=== PATIENT | female | born 1935 | race Caucasian/White ===

== ENCOUNTER 2017-07-27 18:13 | Inpatient (IN) | payer OTHER ==
[~2017-07-27] VITALS: Ht 139.7 cm; Wt 67.5 kg
[~2017-07-27 18:13] MED LIST: CEFTIN250 MG PO; LEVAQUIN500 MG PO; LISINOPRIL20 MG PO; VITAMIN D31000 UNI2 PO
[2017-07-27 19:20] LABS: APPEARANCE CLOUDY ((CLEAR)); BILIRUBIN NEGATIVE; BLOOD SMALL; COLOR AMBER ((YELLOW)); GLUCOSE (STRIP) NEGATIVE; KETONES NEGATIVE; LEUKOCYTES MODERATE; NITRITE NEGATIVE; PROTEIN (STRIP) 30; SPECIFIC GRAVITY 1.012 (1.000-1.030)
[2017-07-27 19:29] LABS: HEMATOCRIT 41.2 % (36.0-46.0); HEMOGLOBIN 13.3 G/DL (11.9-15.5); MCH 33.4 PG (29.0-34.0); MCHC 32.3 G/DL (30.0-36.0); MCV 103.5 FL (83-99); PLATELET COUNT 185 K/uL (156-360); RBC DIS.WIDTH-CV 13.3 % (11.8-14.6); RBC DIS.WIDTH-SD 51.5 % (39-53); RED BLOOD COUNT 3.98 M/uL (3.80-5.20); WHITE BLOOD COUNT 5.4 K/uL (4.1-10.2)
[2017-07-27 19:36] LABS: BICARBONATE 25.2 mEq/L (22-26); CARBOXY HGB 1.9 % (0-5); COMMENTS - BLOOD GASES A+C+; DEVICE NC; METHEMOGLOBIN 1.1 % (0-1.5); O2 FLOW 3 L/MIN; PCO2 38 mm Hg (35-45); PO2 86 mm Hg (80-100); SITE LR; pH 7.43 (7.35-7.45)
[2017-07-27 19:37] LABS: TOTAL RESP RATE 46 resp/min
[2017-07-27 20:07] LABS: TROP-I INTERPRETATION INDETERMINATE; TROPONIN-I 0.57 ng/mL (0.0-0.30)
[2017-07-27 20:15] LABS: ALBUMIN 3.2 G/DL (3.2-4.8); CHLORIDE 107 MEQ/L (99-109); POTASSIUM 4.1 MEQ/L (3.7-5.4); SODIUM 147 MEQ/L (136-147); TOTAL BILIRUBIN 1.1 MG/DL (0.0-1.0)
[2017-07-27 20:20] LABS: ALKALINE PHOSPHATASE 122 IU/L (3-129); ALT (GPT) 81 IU/L (3-49); AST (GOT) 154 IU/L (2-34); CREATININE 0.8 MG/DL (0.6-1.3); GFR ESTIMATE (CALCULATED) > 59 mL/min/; GLUCOSE 100 mg/dL (70-99); TOTAL PROTEIN 5.6 G/DL (6.4-8.3); UREA NITROGEN (BUN) 25 mg/dL (9-23)
[2017-07-27 20:27] LABS: ABS NEUTROPHIL COUNT 5.2; ANISOCYTOSIS 1+; ATYPICAL LYMPHOCYTE 1.7 %; BAND NEUTROPHILS 39.1 % (0-8.0); EOSINOPHIL ABS CT 0; LYMPHOCYTES 0.9 % (15.0-45.0); METAMYELOCYTES 0.9 %; MICROCYTOSIS 1+; NUCLEATED RBC'S 0.9; PLAT.SUFFICIENCY ADEQUATE; POIKILOCYTOSIS 1+; SEG.NEUTROPHILS 57.4 % (46.0-76.0)
[2017-07-27 20:35] LABS: RED BLOOD CELLS 0-5 /HPF (0-5)
[2017-07-27] MEDS ORDERED: CRANBERRY 4001 EAC1 PO (20:35)
[2017-07-27 20:43] LABS: WHITE BLOOD CELLS 15-20 /HPF (0-5)
[2017-07-27 20:44] LABS: EPITHELIAL CELLS 1+ /HPF
[2017-07-27 20:45] LABS: AMORPHOUS URATES CRYSTALS 3+; MUCUS TRACE /LPF; UCUL ADDED? YES
[2017-07-28 01:05] VITALS: BP 95/56
[2017-07-28 02:13] LABS: TROP-I INTERPRETATION POSITIVE
[2017-07-28 02:20] LABS: TROPONIN-I 0.85 ng/mL (0.0-0.30)
[2017-07-28 04:52] VITALS: BP 92/54
[2017-07-28 06:29] LABS: ALT (GPT) 78 IU/L (3-49); AST (GOT) 118 IU/L (2-34); CHLORIDE 108 MEQ/L (99-109); GFR ESTIMATE (CALCULATED) 56 mL/min/; GLUCOSE 95 mg/dL (70-99); POTASSIUM 4.6 MEQ/L (3.7-5.4); SODIUM 144 MEQ/L (136-147); TOTAL BILIRUBIN 1.1 MG/DL (0.0-1.0); TOTAL PROTEIN 5.3 G/DL (6.4-8.3); UREA NITROGEN (BUN) 25 mg/dL (9-23)
[2017-07-28 06:35] LABS: ALKALINE PHOSPHATASE 87 IU/L (3-129)
[2017-07-28 06:41] LABS: ABS NEUTROPHIL COUNT 27.4; ANISOCYTOSIS 2+; BAND NEUTROPHILS 20.9 % (0-8.0); EOSINOPHIL ABS CT 0; HEMATOCRIT 41.6 % (36.0-46.0); LYMPHOCYTES 0.9 % (15.0-45.0); MACROCYTES 1+; MCH 32.7 PG (29.0-34.0); MCHC 31.3 G/DL (30.0-36.0); MCV 104.8 FL (83-99); METAMYELOCYTES 5.2 %; MICROCYTOSIS 1+; MYELOCYTES 3.5 %; PLAT.SUFFICIENCY DECREASED; RBC DIS.WIDTH-CV 13.8 % (11.8-14.6); RED BLOOD COUNT 3.97 M/uL (3.80-5.20); SEG.NEUTROPHILS 66.5 % (46.0-76.0)
[2017-07-28 06:43] LABS: PLATELET COUNT 129 K/uL (156-360); WHITE BLOOD COUNT 31.4 K/uL (4.1-10.2)
[2017-07-28 08:50] VITALS: BP 118/81
[2017-07-28 09:44] LABS: TROP-I INTERPRETATION POSITIVE; TROPONIN-I 0.86 ng/mL (0.0-0.30)
[2017-07-28 11:30] VITALS: BP 115/57
[2017-07-28 12:09] LABS: THYROTROPIN (TSH) 1.2 MIU/L (0.4-5.5)
[2017-07-28 12:19] LABS: INTER. NORMALIZED RATIO ND
[2017-07-28 12:23] LABS: PTT ND SEC (25-37)
[2017-07-28 14:45] VITALS: BP 131/62
[2017-07-28 19:19] VITALS: BP 101/74
[2017-07-29] VITALS (9 sets, daily range): BP systolic 92–119; BP diastolic 50–78
[2017-07-29 00:57] LABS: INTER. NORMALIZED RATIO 1.6
[2017-07-29 06:32] LABS: HEMATOCRIT 40.4 % (36.0-46.0); MCH 34.2 PG (29.0-34.0); MCHC 32.2 G/DL (30.0-36.0); MCV 106.3 FL (83-99); RBC DIS.WIDTH-CV 14.4 % (11.8-14.6); RBC DIS.WIDTH-SD 56.7 % (39-53); WHITE BLOOD COUNT 24.3 K/uL (4.1-10.2)
[2017-07-29 07:06] LABS: ABS NEUTROPHIL COUNT 22.1; ANISOCYTOSIS 1+; ATYPICAL LYMPHOCYTE 0.4 %; EOSINOPHIL ABS CT 0; LYMPHOCYTES 0.5 % (15.0-45.0); MACROCYTES 1+; METAMYELOCYTES 2.2 %; MONOCYTES 6.1 % (0-9.0); PLAT.SUFFICIENCY DECREASED; PLATELET COUNT 86 K/uL (156-360); SEG.NEUTROPHILS 66.8 % (46.0-76.0); TOX.VACUOLIZATION 1+
[2017-07-29 07:55] LABS: CHLORIDE 114 MEQ/L (99-109); CREATININE 1.2 MG/DL (0.6-1.3); GFR ESTIMATE (CALCULATED) 45 mL/min/; POTASSIUM 4.5 MEQ/L (3.7-5.4); SODIUM 147 MEQ/L (136-147)
[2017-07-29 07:56] LABS: GLUCOSE 55 mg/dL (70-99); UREA NITROGEN (BUN) 38 mg/dL (9-23)
[2017-07-29 09:04] LABS: IMM.RETIC FRACTION 8.1 % (3-19); RETIC HGB EQUIVALENT 35.6 (28-36); RETICULOCYTE COUNT 1.2 % (0.5-1.8)
[2017-07-29 09:30] LABS: FOLIC ACID (FOLATE) 15.3 NG/ML (5.0-22.0)
[2017-07-29 12:12] LABS: FERRITIN 574 NG/ML (10-291); IRON 14 MCG/DL (35-150); TRANSFERRIN (TIBC) 153.3 mg/dL (215-380); TRANSFERRIN SATUR. 9 % (20-55)
[2017-07-29 12:22] LABS: TROP-I INTERPRETATION POSITIVE
[2017-07-29 19:44] LABS: HEMATOCRIT 36.9 % (36.0-46.0); HEMOGLOBIN 11.6 G/DL (11.9-15.5); MCH 33.3 PG (29.0-34.0); MCHC 31.4 G/DL (30.0-36.0); PLATELET COUNT 66 K/uL (156-360); RBC DIS.WIDTH-CV 14.5 % (11.8-14.6); RBC DIS.WIDTH-SD 57.1 % (39-53); RED BLOOD COUNT 3.48 M/uL (3.80-5.20); WHITE BLOOD COUNT 19.4 K/uL (4.1-10.2)
[2017-07-29 19:54] LABS: ALBUMIN 2.7 G/DL (3.2-4.8); CHLORIDE 113 MEQ/L (99-109); MAGNESIUM 1.5 mg/dl (1.3-2.7); POTASSIUM 4.2 MEQ/L (3.7-5.4); SODIUM 145 MEQ/L (136-147); TOTAL BILIRUBIN 1.3 MG/DL (0.0-1.0)
[2017-07-29 20:01] LABS: BASE EXCESS -5.3 mEq/L (-3 to +3); BICARBONATE 20.6 mEq/L (22-26); CARBOXY HGB 1.5 % (0-5); METHEMOGLOBIN 1.9 % (0-1.5); PCO2 41 mm Hg (35-45)
[2017-07-29 20:01] LABS: ALKALINE PHOSPHATASE 95 IU/L (3-129); ALT (GPT) 58 IU/L (3-49); AST (GOT) 68 IU/L (2-34); CREATININE 1.3 MG/DL (0.6-1.3); GFR ESTIMATE (CALCULATED) 41 mL/min/; PHOSPHORUS 4.2 mg/dL (2.5-4.9); TOTAL PROTEIN 4.9 G/DL (6.4-8.3); UREA NITROGEN (BUN) 43 mg/dL (9-23)
[2017-07-29 20:02] LABS: COMMENTS - BLOOD GASES C+; DEVICE VENT; FI02 100 %; INSPIRATORY/EXPIRATORY RATIO 335 RATIO; MECHANICAL RATE 18 resp/min; MODE AC; PEEP 5 CM/H20; PO2 269 mm Hg (80-100); SITE RR; TOTAL RESP RATE 18 resp/min; pH 7.31 (7.35-7.45)
[2017-07-29 20:05] LABS: GLUCOSE 132 mg/dL (70-99)
[2017-07-29 20:16] LABS: ABS NEUTROPHIL COUNT 17.6; ANISOCYTOSIS 1+; BAND NEUTROPHILS 26.1 % (0-8.0); EOSINOPHIL ABS CT 0; LYMPHOCYTES 1.7 % (15.0-45.0); MACROCYTES 1+; METAMYELOCYTES 5.2 %; MONOCYTES 0.9 % (0-9.0); MYELOCYTES 1.7 %; SEG.NEUTROPHILS 64.4 % (46.0-76.0)
[2017-07-29 21:17] LABS: APPEARANCE CLOUDY ((CLEAR)); BILIRUBIN NEGATIVE; BLOOD LARGE; COLOR AMBER ((YELLOW)); GLUCOSE (STRIP) NEGATIVE; KETONES NEGATIVE; LEUKOCYTES LARGE; NITRITE NEGATIVE; PROTEIN (STRIP) 30; SPECIFIC GRAVITY 1.013 (1.000-1.030)
[2017-07-29 21:31] LABS: RED BLOOD CELLS TNTC /HPF (0-5); WHITE BLOOD CELLS TNTC /HPF (0-5)
[2017-07-29 21:32] LABS: BACTERIA 3+ /HPF; EPITHELIAL CELLS RARE /HPF; MUCUS RARE /LPF; UCUL ADDED? YES
[2017-07-30] VITALS (23 sets, daily range): BP systolic 88–128; BP diastolic 39–75
[2017-07-30 03:19] LABS: HEMATOCRIT 33.5 % (36.0-46.0); HEMOGLOBIN 10.9 G/DL (11.9-15.5); MCH 33.7 PG (29.0-34.0); MCHC 32.5 G/DL (30.0-36.0); MCV 103.7 FL (83-99); RBC DIS.WIDTH-CV 14.5 % (11.8-14.6); RBC DIS.WIDTH-SD 55.8 % (39-53); RED BLOOD COUNT 3.23 M/uL (3.80-5.20); WHITE BLOOD COUNT 14.2 K/uL (4.1-10.2)
[2017-07-30 03:25] LABS: ALBUMIN 2.3 g/dL (3.2-4.8)
[2017-07-30 03:26] LABS: CHLORIDE 116 mEq/L (99-109); POTASSIUM 3.4 mEq/L (3.7-5.4); SODIUM 145 mEq/L (136-147)
[2017-07-30 03:28] LABS: TOTAL PROTEIN 4.2 g/dL (6.4-8.3)
[2017-07-30 03:30] LABS: TOTAL BILIRUBIN 1.3 mg/dL (0.0-1.0)
[2017-07-30 03:31] LABS: ALKALINE PHOSPHATASE 93 IU/L (3-129)
[2017-07-30 03:32] LABS: GFR ESTIMATE (CALCULATED) 56 mL/min/
[2017-07-30 03:33] LABS: AST (GOT) 57 IU/L (2-34); UREA NITROGEN (BUN) 42 mg/dL (9-23)
[2017-07-30 03:34] LABS: GLUCOSE 85 mg/dL (70-99)
[2017-07-30 03:35] LABS: ALT (GPT) 55 IU/L (3-49)
[2017-07-30 04:02] LABS: ANISOCYTOSIS 1+; BURR CELLS 2+; EOSINOPHIL ABS CT 0; HELMET CELLS 1+; HEMATOLOGY COMMENT 1 SN; LYMPHOCYTES 1.8 % (15.0-45.0); MACROCYTES 2+; METAMYELOCYTES 3.6 %; OVALOCYTES 1+; PLAT.SUFFICIENCY DECREASED; POIKILOCYTOSIS 2+
[2017-07-30 04:04] LABS: BAND NEUTROPHILS 4.6 % (0-8.0); PLATELET COUNT UNABLE TO REPORT K/uL (156-360)
[2017-07-31] VITALS (24 sets, daily range): BP systolic 96–131; BP diastolic 35–82
[2017-07-31 05:53] LABS: HEMATOCRIT 31.7 % (36.0-46.0); HEMOGLOBIN 10.5 G/DL (11.9-15.5); MCH 33.5 PG (29.0-34.0); MCHC 33.1 G/DL (30.0-36.0); MCV 101.3 FL (83-99); RBC DIS.WIDTH-CV 14.6 % (11.8-14.6); RBC DIS.WIDTH-SD 54.4 % (39-53); RED BLOOD COUNT 3.13 M/uL (3.80-5.20)
[2017-07-31 06:19] LABS: IMM.PLATELET FRACTION 7.3 (1-7); PLAT.SUFFICIENCY DECREASED
[2017-07-31 06:21] LABS: PLATELET COUNT 40 K/uL (156-360)
[2017-07-31 08:09] LABS: ALBUMIN 2.1 G/DL (3.2-4.8); ALT (GPT) 35 IU/L (3-49); CHLORIDE 120 MEQ/L (99-109); GLUCOSE 58 mg/dL (70-99); MAGNESIUM 1.3 mg/dl (1.3-2.7); SODIUM 148 MEQ/L (136-147); TOTAL BILIRUBIN 1.1 MG/DL (0.0-1.0); UREA NITROGEN (BUN) 35 mg/dL (9-23)
[2017-07-31 08:14] LABS: ALKALINE PHOSPHATASE 124 IU/L (3-129); AST (GOT) 33 IU/L (2-34); CREATININE 0.5 MG/DL (0.6-1.3); GFR ESTIMATE (CALCULATED) > 59 mL/min/; PHOSPHORUS 1.7 mg/dL (2.5-4.9); TOTAL PROTEIN 4.1 G/DL (6.4-8.3)
[2017-07-31 11:49] LABS: TRIGLYCERIDES 77 MG/DL (Normal: <150)
[2017-07-31 11:50] LABS: TROP-I INTERPRETATION NEGATIVE; TROPONIN-I 0.17 ng/mL (0.0-0.30)
[2017-07-31 12:20] LABS: BASE EXCESS -7.9 mEq/L (-3 to +3); CARBOXY HGB 1.9 % (0-5); COMMENTS - BLOOD GASES A+C+; CONTINUOUS POS AIRWAY PRESSURE 5 cm H2O; DEVICE 840; FI02 40 %; METHEMOGLOBIN 1.6 % (0-1.5); MODE SPONT; PCO2 27 mm Hg (35-45); PO2 67 mm Hg (80-100); PRES. SUPPORT 12 CM/H2O; SITE RR; TOTAL RESP RATE 31 resp/min; pH 7.38 (7.35-7.45)
[2017-07-31 17:55] LABS: TROP-I INTERPRETATION NEGATIVE; TROPONIN-I 0.16 ng/mL (0.0-0.30)
[2017-08-01] VITALS (19 sets, daily range): BP systolic 80–114; BP diastolic 40–64
[2017-08-01 05:07] LABS: CHLORIDE 120 mEq/L (99-109); POTASSIUM 3.5 mEq/L (3.7-5.4); SODIUM 147 mEq/L (136-147)
[2017-08-01 05:08] LABS: MAGNESIUM 1.8 mg/dL (1.3-2.7)
[2017-08-01 05:11] LABS: GLUCOSE 118 mg/dL (70-99)
[2017-08-01 05:12] LABS: PHOSPHORUS 2.5 mg/dL (2.5-4.9)
[2017-08-01 05:13] LABS: CREATININE 0.6 mg/dL (0.6-1.3); GFR ESTIMATE (CALCULATED) > 59 mL/min/
[2017-08-01 05:14] LABS: UREA NITROGEN (BUN) 28 mg/dL (9-23)
[2017-08-01 05:30] LABS: BASE EXCESS -5.3 mEq/L (-3 to +3); BICARBONATE 18.2 mEq/L (22-26); METHEMOGLOBIN 1.7 % (0-1.5); PCO2 28 mm Hg (35-45); PO2 67 mm Hg (80-100); pH 7.42 (7.35-7.45)
[2017-08-01 05:31] LABS: COMMENTS - BLOOD GASES C+; DEVICE VENT; FI02 30 %; MECHANICAL RATE 22 resp/min; MODE AC; PEEP 5 CM/H20; SITE RR; TIDAL VOLUME 335 ML; TOTAL RESP RATE 27 resp/min
[2017-08-01 06:07] LABS: TRIGLYCERIDES 69 MG/DL (Normal: <150)
[2017-08-02] VITALS (19 sets, daily range): BP systolic 91–116; BP diastolic 34–60
[2017-08-02 05:16] LABS: HEMATOCRIT 27.4 % (36.0-46.0); HEMOGLOBIN 9.2 G/DL (11.9-15.5); MCH 32.9 PG (29.0-34.0); MCHC 33.6 G/DL (30.0-36.0); MCV 97.9 FL (83-99); RBC DIS.WIDTH-CV 14.5 % (11.8-14.6); WHITE BLOOD COUNT 20.8 K/uL (4.1-10.2)
[2017-08-02 05:43] LABS: IMM.PLATELET FRACTION 6.7 (1-7); PLATELET COUNT 40 K/uL (156-360)
[2017-08-02 05:49] LABS: CHLORIDE 116 MEQ/L (99-109); CREATININE 0.4 MG/DL (0.6-1.3); GFR ESTIMATE (CALCULATED) > 59 mL/min/; GLUCOSE 123 mg/dL (70-99); PHOSPHORUS 1.9 mg/dL (2.5-4.9); POTASSIUM 3.1 MEQ/L (3.7-5.4); SODIUM 145 MEQ/L (136-147); TRIGLYCERIDES 63 MG/DL (Normal: <150); UREA NITROGEN (BUN) 27 mg/dL (9-23)
[2017-08-02 05:54] LABS: MAGNESIUM 1.9 mg/dl (1.3-2.7)
[2017-08-02 06:01] LABS: BASE EXCESS -1.3 mEq/L (-3 to +3); BICARBONATE 21.3 mEq/L (22-26); CARBOXY HGB 2.1 % (0-5); COMMENTS - BLOOD GASES C; DEVICE VENT; FI02 30 %; MECHANICAL RATE 22 resp/min; METHEMOGLOBIN 1.7 % (0-1.5); MODE AC; PCO2 28 mm Hg (35-45); PEEP 5 CM/H20; PO2 70 mm Hg (80-100); SITE LB; TIDAL VOLUME 335 ML; TOTAL RESP RATE 25 resp/min; pH 7.49 (7.35-7.45)
[2017-08-02 15:32] LABS: Heparin Induced Plt Ab Negative (Negative)
[2017-08-03] VITALS (18 sets, daily range): BP systolic 91–119; BP diastolic 40–96
[2017-08-03 05:13] LABS: CHLORIDE 119 mEq/L (99-109)
[2017-08-03 05:14] LABS: MAGNESIUM 1.7 mg/dL (1.3-2.7); SODIUM 146 mEq/L (136-147)
[2017-08-03 05:16] LABS: GLUCOSE 90 mg/dL (70-99)
[2017-08-03 05:19] LABS: CREATININE 0.5 mg/dL (0.6-1.3); GFR ESTIMATE (CALCULATED) > 59 mL/min/; PHOSPHORUS 1.9 mg/dL (2.5-4.9)
[2017-08-03 05:20] LABS: UREA NITROGEN (BUN) 26 mg/dL (9-23)
[2017-08-03 06:10] LABS: BASE EXCESS -2.5 mEq/L (-3 to +3); BICARBONATE 21.1 mEq/L (22-26); CARBOXY HGB 3.1 % (0-5); METHEMOGLOBIN 1.3 % (0-1.5); PCO2 31 mm Hg (35-45); PO2 60 mm Hg (80-100); pH 7.44 (7.35-7.45)
[2017-08-03 06:11] LABS: COMMENTS - BLOOD GASES C+; SITE RR
[2017-08-03 06:12] LABS: DEVICE VENT; FI02 30 %; MODE SPONT; PEEP 5 CM/H20; PRES. SUPPORT 15 CM/H2O; TOTAL RESP RATE 32 resp/min
[2017-08-03 06:15] LABS: TRIGLYCERIDES 40 MG/DL (Normal: <150)
[2017-08-03 10:07] LABS: UFH SRA Result Negative (Negative)
[2017-08-04] VITALS (26 sets, daily range): BP systolic 65–115; BP diastolic 26–65
[2017-08-04 05:52] LABS: HEMATOCRIT 30.1 % (36.0-46.0); MCH 33.2 PG (29.0-34.0); MCHC 33.2 G/DL (30.0-36.0); RBC DIS.WIDTH-CV 14.7 % (11.8-14.6); RBC DIS.WIDTH-SD 53.8 % (39-53); RED BLOOD COUNT 3.01 M/uL (3.80-5.20); WHITE BLOOD COUNT 24.9 K/uL (4.1-10.2)
[2017-08-04 05:53] LABS: PLATELET COUNT 74 K/uL (156-360)
[2017-08-04 06:40] LABS: CHLORIDE 119 MEQ/L (99-109); CREATININE 0.4 MG/DL (0.6-1.3); GFR ESTIMATE (CALCULATED) > 59 mL/min/; GLUCOSE 111 mg/dL (70-99); MAGNESIUM 1.8 mg/dl (1.3-2.7); PHOSPHORUS 2.2 mg/dL (2.5-4.9); POTASSIUM 3.7 MEQ/L (3.7-5.4); SODIUM 147 MEQ/L (136-147); TRIGLYCERIDES 43 MG/DL (Normal: <150); UREA NITROGEN (BUN) 24 mg/dL (9-23)
[2017-08-04 12:25] LABS: APPEARANCE SL.HAZY ((CLEAR)); BILIRUBIN NEGATIVE; BLOOD SMALL; COLOR AMBER ((YELLOW)); GLUCOSE (STRIP) NEGATIVE; KETONES 5; LEUKOCYTES MODERATE; NITRITE NEGATIVE; PROTEIN (STRIP) 30; SPECIFIC GRAVITY 1.023 (1.000-1.030); UROBILINOGEN 0.2 MG/DL (0.2-1.0)
[2017-08-04 12:45] LABS: BACTERIA RARE /HPF; CALCIUM OXALATE CRYSTALS 2+ /HPF; EPITHELIAL CELLS RARE /HPF; HYALINE CASTS TNTC /LPF; MUCUS 4+ /LPF; RED BLOOD CELLS 15-20 /HPF (0-5); UCUL ADDED? YES; WHITE BLOOD CELLS TNTC /HPF (0-5)
[2017-08-04 13:25] LABS: C DIFF TOXIN NEGATIVE (NEGATIVE)
[2017-08-05] VITALS (23 sets, daily range): BP systolic 90–117; BP diastolic 40–60
[2017-08-05 07:01] LABS: CHLORIDE 118 MEQ/L (99-109); CREATININE 0.4 MG/DL (0.6-1.3); GFR ESTIMATE (CALCULATED) > 59 mL/min/; GLUCOSE 132 mg/dL (70-99); MAGNESIUM 1.6 mg/dl (1.3-2.7); PHOSPHORUS 2.6 mg/dL (2.5-4.9); POTASSIUM 3.9 MEQ/L (3.7-5.4); SODIUM 146 MEQ/L (136-147); TRIGLYCERIDES 46 MG/DL (Normal: <150); UREA NITROGEN (BUN) 24 mg/dL (9-23)
[2017-08-05 07:43] LABS: BASOPHIL (%) 0.3 % (0-1); BASOPHIL COUNT 0.1 K/uL (0-0.1); EOSINOPHIL COUNT 0.2 K/uL (0-0.3); HEMATOCRIT 30.5 % (36.0-46.0); HEMOGLOBIN 10.1 G/DL (11.9-15.5); IMMATURE GRANULOCYTE (%) 2.3 % (0.0-0.7); LYMPHOCYTE (%) 3.9 % (15-42); LYMPHOCYTE COUNT 0.8 K/uL (1.0-2.8); MCHC 33.1 G/DL (30.0-36.0); MCV 99.7 FL (83-99); MONOCYTE (%) 3.5 % (3-12); MONOCYTE COUNT 0.7 K/uL (0-0.8); NEUTROPHIL COUNT 17.7 K/uL (1.8-6.4); RBC DIS.WIDTH-CV 14.8 % (11.8-14.6); RBC DIS.WIDTH-SD 53.6 % (39-53); RED BLOOD COUNT 3.06 M/uL (3.80-5.20); WHITE BLOOD COUNT 19.9 K/uL (4.1-10.2)
[2017-08-05 07:50] LABS: PLATELET COUNT 111 K/uL (156-360)
[2017-08-06] VITALS (20 sets, daily range): BP systolic 94–127; BP diastolic 43–67
[2017-08-06 10:04] LABS: CHLORIDE 115 MEQ/L (99-109); CREATININE 0.4 MG/DL (0.6-1.3); GFR ESTIMATE (CALCULATED) > 59 mL/min/; GLUCOSE 148 mg/dL (70-99); MAGNESIUM 1.5 mg/dl (1.3-2.7); PHOSPHORUS 2.4 mg/dL (2.5-4.9); POTASSIUM 3.5 MEQ/L (3.7-5.4); SODIUM 144 MEQ/L (136-147); TRIGLYCERIDES 43 MG/DL (Normal: <150); UREA NITROGEN (BUN) 23 mg/dL (9-23)
[2017-08-07] VITALS (19 sets, daily range): BP systolic 89–122; BP diastolic 45–63
[2017-08-07 05:01] LABS: HEMATOCRIT 27.7 % (36.0-46.0); HEMOGLOBIN 9.4 G/DL (11.9-15.5); MCH 33.9 PG (29.0-34.0); MCHC 33.9 G/DL (30.0-36.0); NRBC (%) 0.1 /100 WBC (0-0); RBC DIS.WIDTH-CV 15.2 % (11.8-14.6); RBC DIS.WIDTH-SD 52.9 % (39-53); RED BLOOD COUNT 2.77 M/uL (3.80-5.20); WHITE BLOOD COUNT 17.8 K/uL (4.1-10.2)
[2017-08-07 05:04] LABS: PLATELET COUNT 200 K/uL (156-360)
[2017-08-07 05:23] LABS: CHLORIDE 114 mEq/L (99-109); POTASSIUM 3.6 mEq/L (3.7-5.4); SODIUM 139 mEq/L (136-147)
[2017-08-07 05:25] LABS: GLUCOSE 119 mg/dL (70-99)
[2017-08-07 05:29] LABS: CREATININE 0.5 mg/dL (0.6-1.3); GFR ESTIMATE (CALCULATED) > 59 mL/min/; PHOSPHORUS 2.5 mg/dL (2.5-4.9)
[2017-08-07 05:30] LABS: UREA NITROGEN (BUN) 25 mg/dL (9-23)
[2017-08-07 05:34] LABS: MAGNESIUM 1.3 mg/dL (1.3-2.7)
[2017-08-07 06:15] LABS: TRIGLYCERIDES 39 MG/DL (Normal: <150)
[2017-08-08] VITALS (24 sets, daily range): BP systolic 79–132; BP diastolic 37–71
[2017-08-08 05:57] LABS: BASOPHIL (%) 0.3 % (0-1); EOSINOPHIL (%) 1.4 % (0-5); EOSINOPHIL COUNT 0.2 K/uL (0-0.3); HEMATOCRIT 30.6 % (36.0-46.0); HEMOGLOBIN 10.5 G/DL (11.9-15.5); IMMATURE GRANULOCYTE (%) 2.2 % (0.0-0.7); LYMPHOCYTE (%) 4.6 % (15-42); LYMPHOCYTE COUNT 0.7 K/uL (1.0-2.8); MCH 34.3 PG (29.0-34.0); MCHC 34.3 G/DL (30.0-36.0); MONOCYTE (%) 4.5 % (3-12); MONOCYTE COUNT 0.6 K/uL (0-0.8); NEUTROPHIL COUNT 12.3 K/uL (1.8-6.4); RBC DIS.WIDTH-CV 15.7 % (11.8-14.6); RBC DIS.WIDTH-SD 53.1 % (39-53); RED BLOOD COUNT 3.06 M/uL (3.80-5.20); WHITE BLOOD COUNT 14.1 K/uL (4.1-10.2)
[2017-08-08 06:29] LABS: HEMATOLOGY COMMENT 1 SN; PLAT.SUFFICIENCY ADEQUATE; PLATELET COUNT UNABLE TO REPORT K/uL (156-360)
[2017-08-08 06:30] LABS: ALBUMIN 1.5 G/DL (3.2-4.8); ALKALINE PHOSPHATASE 109 IU/L (3-129); ALT (GPT) 12 IU/L (3-49); AST (GOT) 19 IU/L (2-34); CHLORIDE 113 MEQ/L (99-109); CREATININE 0.3 MG/DL (0.6-1.3); GFR ESTIMATE (CALCULATED) > 59 mL/min/; GLUCOSE 119 mg/dL (70-99); PHOSPHORUS 2.7 mg/dL (2.5-4.9); POTASSIUM 4.2 MEQ/L (3.7-5.4); SODIUM 143 MEQ/L (136-147); TOTAL BILIRUBIN 0.6 MG/DL (0.0-1.0); TOTAL PROTEIN 3.6 G/DL (6.4-8.3); UREA NITROGEN (BUN) 27 mg/dL (9-23)
[2017-08-08 06:31] LABS: MAGNESIUM 2.1 mg/dl (1.3-2.7)
[2017-08-09] VITALS (23 sets, daily range): BP systolic 93–133; BP diastolic 45–74
[2017-08-09 07:39] LABS: BASOPHIL (%) 0.2 % (0-1); EOSINOPHIL (%) 1.4 % (0-5); EOSINOPHIL COUNT 0.2 K/uL (0-0.3); HEMATOCRIT 26.1 % (36.0-46.0); HEMOGLOBIN 8.7 G/DL (11.9-15.5); IMMATURE GRANULOCYTE (%) 1.8 % (0.0-0.7); LYMPHOCYTE (%) 4.2 % (15-42); LYMPHOCYTE COUNT 0.5 K/uL (1.0-2.8); MCH 33.5 PG (29.0-34.0); MCHC 33.3 G/DL (30.0-36.0); MCV 100.4 FL (83-99); MONOCYTE (%) 4.5 % (3-12); MONOCYTE COUNT 0.6 K/uL (0-0.8); NEUTROPHIL (%) 87.9 % (45-76); NEUTROPHIL COUNT 11.1 K/uL (1.8-6.4); PLATELET COUNT 321 K/uL (156-360); RBC DIS.WIDTH-CV 15.9 % (11.8-14.6); RBC DIS.WIDTH-SD 53.7 % (39-53); WHITE BLOOD COUNT 12.6 K/uL (4.1-10.2)
[2017-08-09 07:57] LABS: CHLORIDE 113 MEQ/L (99-109); CREATININE 0.3 MG/DL (0.6-1.3); GFR ESTIMATE (CALCULATED) > 59 mL/min/; GLUCOSE 140 mg/dL (70-99); POTASSIUM 4.5 MEQ/L (3.7-5.4); SODIUM 142 MEQ/L (136-147); UREA NITROGEN (BUN) 32 mg/dL (9-23)
[2017-08-10] VITALS (24 sets, daily range): BP systolic 97–129; BP diastolic 44–65
[2017-08-11] VITALS (22 sets, daily range): BP systolic 90–176; BP diastolic 41–86
[2017-08-11 06:27] LABS: BASOPHIL (%) 0.2 % (0-1); EOSINOPHIL (%) 1.5 % (0-5); EOSINOPHIL COUNT 0.1 K/uL (0-0.3); HEMATOCRIT 24.5 % (36.0-46.0); HEMOGLOBIN 8.3 G/DL (11.9-15.5); IMMATURE GRANULOCYTE (%) 2.2 % (0.0-0.7); LYMPHOCYTE (%) 5.4 % (15-42); LYMPHOCYTE COUNT 0.5 K/uL (1.0-2.8); MCH 34.7 PG (29.0-34.0); MCHC 33.9 G/DL (30.0-36.0); MCV 102.5 FL (83-99); MONOCYTE (%) 8.7 % (3-12); MONOCYTE COUNT 0.8 K/uL (0-0.8); NEUTROPHIL COUNT 7.8 K/uL (1.8-6.4); RBC DIS.WIDTH-CV 16.2 % (11.8-14.6); RBC DIS.WIDTH-SD 56.8 % (39-53); RED BLOOD COUNT 2.39 M/uL (3.80-5.20); WHITE BLOOD COUNT 9.5 K/uL (4.1-10.2)
[2017-08-11 06:28] LABS: PLATELET COUNT 432 K/uL (156-360)
[2017-08-11 07:07] LABS: CHLORIDE 104 MEQ/L (99-109); CREATININE 0.4 MG/DL (0.6-1.3); GFR ESTIMATE (CALCULATED) > 59 mL/min/; GLUCOSE 132 mg/dL (70-99); MAGNESIUM 1.8 mg/dl (1.3-2.7); PHOSPHORUS 3.3 mg/dL (2.5-4.9); POTASSIUM 4.8 MEQ/L (3.7-5.4); SODIUM 139 MEQ/L (136-147); UREA NITROGEN (BUN) 45 mg/dL (9-23)
[2017-08-12 03:44] VITALS: BP 118/58
[2017-08-12 06:28] LABS: BASOPHIL (%) 0.3 % (0-1); BASOPHIL COUNT 0.1 K/uL (0-0.1); EOSINOPHIL (%) 0 % (0-5); HEMATOCRIT 32.3 % (36.0-46.0); IMMATURE GRANULOCYTE (%) 1.4 % (0.0-0.7); LYMPHOCYTE (%) 1.8 % (15-42); LYMPHOCYTE COUNT 0.4 K/uL (1.0-2.8); MCH 33.2 PG (29.0-34.0); MCHC 31.9 G/DL (30.0-36.0); MCV 104.2 FL (83-99); MONOCYTE (%) 5.9 % (3-12); MONOCYTE COUNT 1.3 K/uL (0-0.8); NEUTROPHIL (%) 90.6 % (45-76); NEUTROPHIL COUNT 19.1 K/uL (1.8-6.4); RBC DIS.WIDTH-CV 16.3 % (11.8-14.6); RBC DIS.WIDTH-SD 59.6 % (39-53)
[2017-08-12 06:30] LABS: HEMOGLOBIN 10.3 G/DL (11.9-15.5); PLATELET COUNT 683 K/uL (156-360)
[2017-08-12 06:42] LABS: CHLORIDE 103 MEQ/L (99-109); CREATININE 0.5 MG/DL (0.6-1.3); GFR ESTIMATE (CALCULATED) > 59 mL/min/; GLUCOSE 115 mg/dL (70-99); SODIUM 138 MEQ/L (136-147); UREA NITROGEN (BUN) 46 mg/dL (9-23)
[2017-08-12 07:15] VITALS: BP 121/58
== END 2017-08-13 10:20 | DRG 870 ==
LOC: EME 18:13 → ENRESERV 21:17 → 4EAST 21:17 → EDOF 21:17 → 4WEST 21:17 → ENRESERV 22:36 → 4EAST 23:39 → 4WEST 07-29 18:25 → ENRESERV 08-11 → 4WEST 08-11 19:52 → ENRESERV 08-11 19:59 → 5EAST 08-11 21:41 → ENPENDDIS 08-13 → 5EAST 08-13 10:20
PROVIDERS: Emergency Medicine; Hospitalist; Internal Medicine; Internal Medicine Critical Care Medicine; Internal Medicine Pulmonary Disease; Specialist
DX: A41.50 Gram-negative sepsis, unspecified (principal); I21.A1 Myocardial infarction type 2; I50.9 Heart failure, unspecified; I11.0 Hypertensive heart disease with heart failure; E78.5 Hyperlipidemia, unspecified; E03.9 Hypothyroidism, unspecified; J69.0 Pneumonitis due to inhalation of food and vomit; J15.8 Pneumonia due to other specified bacteria; N39.0 Urinary tract infection, site not specified; E87.2 Acidosis; R64 Cachexia; M62.58 Muscle wasting and atrophy, not elsewhere classified, other site; R01.1 Cardiac murmur, unspecified; M19.90 Unspecified osteoarthritis, unspecified site; R41.82 Altered mental status, unspecified; R65.21 Severe sepsis with septic shock; G91.9 Hydrocephalus, unspecified; J96.01 Acute respiratory failure with hypoxia; G89.29 Other chronic pain; E83.42 Hypomagnesemia; M54.9 Dorsalgia, unspecified; D69.6 Thrombocytopenia, unspecified; B96.20 Unspecified Escherichia coli [E. coli] as the cause of diseases classified elsewhere; I27.29 Other secondary pulmonary hypertension; G93.41 Metabolic encephalopathy; R32 Unspecified urinary incontinence; E87.6 Hypokalemia; K44.9 Diaphragmatic hernia without obstruction or gangrene; Z51.5 Encounter for palliative care; Z88.5 Allergy status to narcotic agent; Z79.82 Long term (current) use of aspirin; Z88.0 Allergy status to penicillin; Z88.8 Allergy status to other drugs, medicaments and biological substances; Z91.040 Latex allergy status; Z74.01 Bed confinement status; I27.81 Cor pulmonale (chronic); E83.39 Other disorders of phosphorus metabolism; Z66 Do not resuscitate; Z88.9 Allergy status to unspecified drugs, medicaments and biological substances; Z68.28 Body mass index [BMI] 28.0-28.9, adult; E86.0 Dehydration
CPT/HCPCS: 36600; 70450; 71010; 71045; 71250; 74176; 80048; 80053; 81003; 82330; 82607; 82728; 82746; 82803; 82948; 83540; 83605; 83735; 83880; 84100; 84443; 84466; 84478; 84484; 85025; 85025 91; 85027; 85046; 85610; 85730; 86022 90; 87040; 87070; 87076; 87077; 87086; 87086 GA; 87185; 87186; 87205; 87493; 87641; 87801; 92610 GN; 93005; 93306; 94002; 94003; 94640; 94640 76; 94799; 99202; 99281; 99285; C1751; C9113; J0692; J1644; J1815; J1885; J1940; J1956; J2270; J2704; J3475; J3480; J7030; J7040; J7050; J7120; S0028; S0030